=== PATIENT | female | born 1965 | race African-American/Black ===

== ENCOUNTER 2016-09-18 00:53 | Emergency (ER) | payer OTHER ==
[~2016-09-18] VITALS: Ht 162.6 cm; Wt 145.2 kg
--- NOTE | ~2016-09-18 | EKG ---
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1965 Requested By: Sunny Guerra Order Number: [id number] MD: Otf Gaming Measurements Intervals [place] Rate: 67 P: 44 LA: 134 QRS: -5 QRSD: 89 T: 2 QT: 400 QTc: 423 Interpretive Statements Sinus rhythm Probable left atrial enlargement Anteroseptal infarct, old Compared to ECG 02/06/2016 15:28:40 Ectopic atrial rhythm no longer present Myocardial infarct finding still present Electronically Signed On 09-18-2016 16:07:00 CAR CHANGER by Otf Gaming [email or web address] <ELECTRONICALLY SIGNED> By: Otf Gaming MD 09/18/16 1607 [id number] Otf Gaming MD /EPI
[~2016-09-18 00:53] MED LIST: AMLODIPINE BESY10 MG PO; BENAZEPRIL HCL20 MG PO; CVS BUFFERED A325 MG PO; HYDROCHLOROTHIA25 M1 PO
[2016-09-18 01:35] LABS: URINE BLOOD NEGATIVE (Negative); URINE COLOR YELLOW; URINE GLUCOSE-RANDOM* NEGATIVE (Negative); URINE KETONES NEGATIVE (Negative); URINE LEUKOCYTES-REFLEX NEGATIVE (Negative); URINE PROTEIN (DIPSTICK) TRACE (Negative); URINE SPECIFIC GRAVITY >= 1.030 (1.003-1.035)
[2016-09-18 01:49] LABS: ICTOTEST (BILI CONFIRMATORY) Negative (Negative); URINE BILIRUBIN NEGATIVE (Negative)
[2016-09-18 02:19] LABS: HEMATOCRIT 42.6 % (37.0-47.0); HEMOGLOBIN 14.3 gm/dL (12.0-15.0); MCH 28.2 pg (26.0-34.0); MCHC 33.6 % (28.0-37.0); MCV 83.9 fL (80.0-100.0); PLATELET COUNT 316 thou/uL (150-400); RBC 5.08 mil/uL (4.20-5.00); RDW 15.6 % (10.5-14.5); WBC 4.9 thou/uL (4.0-11.0)
[2016-09-18 02:20] LABS: MANUAL DIFF YES
[2016-09-18 02:36] LABS: ALBUMIN 3.2 g/dL (3.4-5.0); ALKALINE PHOSPHATASE 102 U/L (46-116); ANION GAP 9 mmol/L (7-16); CALCIUM 9.1 mg/dL (8.5-10.1); CHLORIDE 97 mmol/L (98-107); CO2 31 mmol/L (21-32); CREATININE 0.9 mg/dL (0.6-1.3); GLUCOSE 100 mg/dL (70-99); MAGNESIUM 2.1 mg/dL (1.8-2.4); SGOT 19 U/L (15-37); SGPT 30 U/L (30-65); SODIUM 137 mmol/L (136-145); TOTAL BILIRUBIN 0.2 mg/dL (<0.1-1.0); TOTAL PROTEIN 7.9 g/dL (6.4-8.2)
[2016-09-18 02:37] LABS: TROPONIN-I < 0.04 ng/mL (<0.04-0.07)
[2016-09-18 02:48] LABS: CK-MB MASS 0.6 ng/mL (<0.5-3.6); NT-PRO BRAIN NAT PEPTIDE 285 pg/mL (<300)
[2016-09-18 03:06] LABS: BUN 13 mg/dL (7-18)
[2016-09-18] MEDS ORDERED: ZOFRAN ODT8 MG PO (03:36)
[2016-09-18] MEDS ORDERED: TRAMADOL 50 MG50 MG PO (03:36)
[2016-09-18] MEDS ORDERED: POTASSIUM20 PO (03:37)
[2016-09-18 04:08] LABS: ABSOLUTE NEUTROPHILS 2.2 thou/uL (1.4-8.2); ANISOCYTOSIS SLIGHT; TOTAL CELL COUNT 100
== END 2016-09-18 04:04 | disposition home or self-care (01) ==
LOC: ER 00:53
PROVIDERS: Emergency Medicine
DX: J11.1 Influenza due to unidentified influenza virus with other respiratory manifestations (principal); E87.6 Hypokalemia; I10 Essential (primary) hypertension; E66.9 Obesity, unspecified; Z86.718 Personal history of other venous thrombosis and embolism; F17.210 Nicotine dependence, cigarettes, uncomplicated; F10.99 Alcohol use, unspecified with unspecified alcohol-induced disorder; F12.10 Cannabis abuse, uncomplicated

== ENCOUNTER 2020-08-12 12:22 | Emergency (ER) | payer OTHER ==
[~2020-08-12] VITALS: Ht 152.4 cm; Wt 117.9 kg
[~2020-08-12 12:22] MED LIST changes: +POTASSIUM20 PO; +TRAMADOL 50 MG50 MG PO; +ZOFRAN ODT8 MG PO
[2020-08-12 13:54] LABS: HEMATOCRIT 43.1 % (37.0-47.0); HEMOGLOBIN 14.4 gm/dL (12.0-15.0); MCHC 33.3 g/dL (28.0-37.0); MCV 87.1 fL (80.0-100.0); PLATELET COUNT 259 thou/uL (150-400); RBC 4.95 mil/uL (4.20-5.00); RDW 16.8 % (10.5-14.5); WBC 6.4 thou/uL (4.0-11.0)
[2020-08-12 14:52] VITALS: BP 175/95
[2020-08-12 14:54] LABS: ABSOLUTE NEUTROPHILS 3.8 thou/uL (1.4-8.2); ATYPICAL LYMPHS 2 %
[2020-08-12 14:55] LABS: ANISOCYTOSIS 1+
[2020-08-12 16:23] LABS: ALBUMIN 3.2 g/dL (3.4-5.0); CALCIUM 9.8 mg/dL (8.5-10.1); CREATININE 0.8 mg/dL (0.6-1.0); POTASSIUM 3.4 mmol/L (3.5-5.1); TOTAL BILIRUBIN 0.3 mg/dL (0.2-1.0); TOTAL PROTEIN 7.5 g/dL (6.4-8.2)
[2020-08-12] MEDS ORDERED: NAPROSYN500 MG PO (16:33)
[2020-08-12] MEDS ORDERED: DOXYCYCLINE 10100 MG PO (16:33)
[2020-08-12 20:23] LABS: ALBUMIN 3.3 g/dL (3.4-5.0); CALCIUM 9.8 mg/dL (8.5-10.1); CREATININE 0.9 mg/dL (0.6-1.0); POTASSIUM 5.7 mmol/L (3.5-5.1); TOTAL BILIRUBIN 0.6 mg/dL (0.2-1.0); TOTAL PROTEIN 8.4 g/dL (6.4-8.2)
== END 2020-08-12 16:51 | disposition home or self-care (01) ==
LOC: ER 12:22
PROVIDERS: Physician Assistant
DX: L03.115 Cellulitis of right lower limb (principal); I10 Essential (primary) hypertension; F17.210 Nicotine dependence, cigarettes, uncomplicated; G43.909 Migraine, unspecified, not intractable, without status migrainosus; Z79.899 Other long term (current) drug therapy; Z79.82 Long term (current) use of aspirin

== ENCOUNTER 2021-02-15 09:54 | Inpatient (IN) | payer OTHER ==
[~2021-02-15] VITALS: Ht 152.4 cm; Wt 109.3 kg
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
[~2021-02-15 09:54] MED LIST changes: +DOXYCYCLINE 10100 MG PO; +NAPROSYN500 MG PO
[2021-02-16 12:00] VITALS: BP 163/83
--- NOTE | 2021-02-16 14:27 | EKG ---
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 : 1965 Requested By: Darya Kumar Order Number: [id number] MD: Naren Valles Measurements Intervals [place] Rate: 76 P: 61 NE: 130 QRS: 16 QRSD: 88 T: 11 QT: 388 QTc: 437 Interpretive Statements Sinus rhythm Probable left atrial enlargement Poor R wave progression V1-3 Compared to ECG 09/18/2016 01:39:28 No significant changes Electronically Signed On 02-16-2021 14:27:15 CDT by Naren Valles [email or web address] <ELECTRONICALLY SIGNED> By: Naren Valles MD, [facility] 02/16/21 1427 56 56 Naren Valles MD, FAC /EPI
[2021-02-16 15:30] VITALS: BP 143/80
[2021-02-16 20:57] VITALS: BP 119/82
[2021-02-17 03:39] VITALS: BP 154/78
[2021-02-17 04:02] LABS: CALCIUM 8.9 mg/dL (8.5-10.1); CREATININE 0.9 mg/dL (0.6-1.0); POTASSIUM 3.8 mmol/L (3.5-5.1)
--- NOTE | 2021-02-17 04:56 | NUR ---
JUMPING BETWEEN THE DUAL ADMISSION TO GET NECESSARY INFORMATION ON PATIENT. PT LAST VISIT SHE WAS IN FOR SPIDER BITES. THIS ADMISSION SHE WAS SPRAYING BUG SPRAY AND COULD HAVE INGESTED SOME. PT STATES SHE SLURS HERE WORDS DUE TO NOT HAVING DENTURES. PT COMPLAINT OF HEADACHE AND THAT TYLENOL DOES NOT WORK. ASKED WHAT SHE TAKES AT HOME AND PT STATES "A BUNCH OF IBUPROFEN." EDUCATED PT ON RISK WITH LASTING EFFECTS ON KIDNEYS WITH TOO MUCH NSAID. PT GOT X1 TRAMADOL FOR HEADACHE AND NICOTINE PATCH SHE IS 1 PPD SMOKER. FALL PRECAUTIONS IN PLACE.
[2021-02-17 07:33] VITALS: BP 121/55
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
--- NOTE | 2021-02-17 14:42 | NUR ---
ASSUMED PATIENT CARE AT 0700. A/O X4. LEFT SIDE MORE STRONGER. UP WITH STANDBY. CALLED HOU[facility] ABOUT WHICH OPHTHALMOLOGY WILL SEE INPATIENT. WAITTING FOR INFRO NOW. [facility] X4. PROGRESSING TOWARDS POC GOALS.
[2021-02-17 15:04] VITALS: BP 159/87
[2021-02-17] MEDS ORDERED: SYNTHROID100 MC1 PO (15:47)
[2021-02-17] MEDS ORDERED: PROTONIX 20 MG20 M1 PO (15:47)
[2021-02-17] MEDS ORDERED: ATORVASTATIN CA10 MG PO (15:47)
[2021-02-17] MEDS ORDERED: ADULT LOW DOSE81 MG PO (15:47)
[2021-02-17] MEDS ORDERED: ACETAMINOPHEN325 M1 PO (15:47)
[2021-02-17] MEDS ORDERED: Nicotine Transdermal TRANSDERM (15:47)
[2021-02-17 15:55] VITALS: BP 159/87
== END 2021-02-17 16:29 | disposition home or self-care (01) | DRG 313 ==
LOC: ER 09:54 → 3W 23:44
PROVIDERS: Psychiatry & Neurology Neuromuscular Medicine; ADMIT Internal Medicine; ATTEND Internal Medicine
DX: R07.9 Chest pain, unspecified (principal); Z68.42 Body mass index [BMI] 45.0-49.9, adult; I10 Essential (primary) hypertension; E78.5 Hyperlipidemia, unspecified; E11.9 Type 2 diabetes mellitus without complications; F17.210 Nicotine dependence, cigarettes, uncomplicated; F12.90 Cannabis use, unspecified, uncomplicated; E03.9 Hypothyroidism, unspecified; E66.9 Obesity, unspecified; G43.909 Migraine, unspecified, not intractable, without status migrainosus; Z71.6 Tobacco abuse counseling; Z79.82 Long term (current) use of aspirin; Z79.899 Other long term (current) drug therapy; Z86.718 Personal history of other venous thrombosis and embolism; Z86.73 Personal history of transient ischemic attack (TIA), and cerebral infarction without residual deficits
CPT/HCPCS: 10879